=== PATIENT | male | born 1950 | race Caucasian/White ===

== ENCOUNTER → 2022-04-27 12:48 | Outpatient (CLI) | payer OTHER, SELFPAY ==
[2022-04-27 14:20] LABS: COVID19 -Nasal RAPID Negative (Negative)
== END ==
PROVIDERS: PCP Physician Assistant; Referring Provider Orthopaedic Surgery Orthopaedic Surgery of the Spine; Visit Provider Orthopaedic Surgery Orthopaedic Surgery of the Spine
DX: Z20.822 Contact with and (suspected) exposure to COVID-19 (principal)
CPT/HCPCS: 87635; C9803

== ENCOUNTER 2022-04-30 06:22 | Inpatient (IN) | payer OTHER, SELFPAY ==
[2022-04-24 12:35] VITALS: BMI 34.1
[2022-04-30] VITALS (12 sets, daily range): BP systolic 113–135; BP diastolic 63–83; PULSE 70–109; RESP 12–18; TEMP 36.6–36.9; O2SAT 92–100; BMI 34.1
[2022-04-30] MEDS: ACETAMINOPHEN 325 MG TABLET 975 MG PO (06:55)
[2022-04-30] MEDS: GABAPENTIN 300 MG CAPSULE PO ×2 (06:55→20:16)
[2022-04-30] MEDS: LACTATED RINGERS 1,000 ML 42 ML IV ×3 (06:57→11:55)
--- NOTE | 2022-04-30 07:40 | PM.PREOP ---
Pre-operative Note COVID-19 COVID-19 status: Negative Result date/Date tested (Pos, Neg/Pending): 04/29/22 Criteria for continued procedure: Expected advancement of disease process, Possibility delay results in more complex future surgery or treatment, Increased loss of function, Continuing or worsening of significant or severe pain, Deterioration of the patient's condition or overall health and Delay expected to result in less-positive ultimate med/surg outcome Interval Note History & Physical reviewed/Exam performed by Physician: Yes Changes to H&P: No
[2022-04-30] MEDS: CEFAZOLIN 2 GM/100 ML PREMIX 100 ML IV ×4 (07:56→23:38)
--- NOTE | 2022-04-30 08:29 | SUR.OPER ---
Prone on spine table, head in foam head support, padded chest and pelvic supports, gel pad at knees, lower legs supported by pillows; nipples, genitalia and toes free of pressure, arms secured on foam padded arm boards at <90 degrees abduction. Tape over blanket at thigh secured to table.
[2022-04-30] MEDS: BUPIVACAINE LIPOSOME 266 MG/20 ML VIAL INJ (08:36)
[2022-04-30] MEDS: BUPIVACAINE 0.5% W/ EPI (PF) 30 ML VIAL INJ (08:36)
--- NOTE | 2022-04-30 13:24 | DI.RAD.S_ITS ---
PROCEDURE: XR LUMBAR SPINE 2-3V INDICATIONS: L3-4, L4-5, L5-S1 TLIF ROBOT TECHNIQUE: 3 views of the lumbar spine were acquired. COMPARISON: None. FINDINGS: Intraoperative fluoroscopic images are obtained for L3-S1 posterior fusion construct with interbody spacer placement. IMPRESSION: Intraoperative fluoroscopic images were obtained for L3-S1 posterior fusion. Please see operative note for full details. Dictated by: Yao Neri M.D. on 04/30/2022 at 13:37 Approved by: Yao Neri M.D. on 04/30/2022 at 13:38
--- NOTE | 2022-04-30 13:27 | P.OP_ITS ---
Operative Date/Time/Diagnoses Date of procedure: 04/30/22 Time of procedure: 07:40 Pre-op diagnosis: 1. L3-4, L4-5, L5-S1 spinal stenosis with neurogenic claudication 2. L3-4, L4-5, L5-S1 spondylolisthesis Post-op diagnosis: same Procedure & Clinicians Procedure: 1. L3-4, L4-5, L5-S1 Postero-lateral and posterior interbody fusion 2. L3-4, L4-5, L5-S1 interbody cage placement. 3. L3-4, L4-5, L5-S1 decompressive laminectomy with bilateral facetecomies 4. L3-4, L4-5, L5-S1 Posterior segmental instrumentation 5. Butner of bone marrow from iliac crest 6. Utilization of microsurgical technique and operating microscope 7. Utilization of robotic assisted navigation Same procedure as scheduled: Yes Indications: Patient has been having chronic back pain and worsening lumbar radiculopathy. Patient failed multiple conservative management with worsening pain weakness and numbness in his lower extremity. Patient has been having difficulty performing activity of daily living. After discussing risks benefits of treatment options, patient elected proceed with surgery. Surgeon: Raciel Cronin Room Maid: Leena Mandel Click Yes if Unassisted: No Anesthesia Type: General Operative Notes Closure Type: primary Specimen(s): none sent Prosthetic devices, grafts, tissues, transplants, or devices: Globus CREO MIS screws, Rise cages Applied: catheter Estimated Blood Loss (mL): 150 Blood products transfused: none Procedure in detail: Patient was seen in the preoperative area. Risks and benefits of the surgery was discussed with the patient. Informed consent was obtained from the patient and placed in the chart. Surgical site was marked. Patient was taken to the operative room. General anesthesia was administered. Prophylactic antibiotic was given to the patient less than 30 min before the incision was made. Patient was placed into a prone position on the Manny table. Patient's back was then prepped and draped in the sterile fashion. Time-out was performed at this time. After patient was prepped and draped, patient's PSIS was palpated and marked bilaterally. Small 1 cm incision was made over the PSIS for placement of the reference probes. Two trocar was placed into the PSIS 1 on each side. The reference probe was attached to the trocar of the reference apparatus. At this time the C-arm imaging was used to confirm AP and lateral of L3-4, L4- L5, L5-S1 vertebrae and merged the C-arm imaging using the [employer] robotic navigation system with the CT of the lumbar spine. After successful merging was completed and confirmed, skin marker was used to edouard out the skin incision using the [employer] robotic arm. Bilateral incision was made at this time. Pre templated trajectory was used and guided using the [employer] robotic navigation system for bilateral L3, L4, L5, S1 pedicle screw placement. This was done by using the robotic arm to guide the high-speed bur to make a cortical entry point. Next a drill was placed also using the robotic arm and guided using the navigation system drilling partially through bilateral L3, L4, L5 and S1 pedicles. Next L3, L4, L5, S1 pedicle screws it was pre templated and measured was placed onto the power otr flatbed driver and inserted into the pedicles bilaterally. After all 8 screws were placed C-arm imaging was taken of both AP and lateral to confirm the placement. Excellent placement of the screws were confirmed and a matched precisely with the pre planned screw placement using the navigation system. MARs retractor was inserted using [employer] guidence. Globus MARS retractors was placed inside the incision and docked onto the L3, L4 and L5 lamina. Using microsurgical technique and operating microscope, a L3, L4, L5 laminectomy and L3-4, L4-5, L5-S1 facetectomy was performed using a Kerrison rongeur. Patient was found have severe lateral recess and neural foramen stenosis which was fully decompressed after the laminectomy facetectomy. More than 75% of the facets were removed during the process of decompression re ndering L3-4, L4-5, L5-S1 level grossly unstable and required a fusion procedure at the same time. The disc space at L3-4, L4-5, L5-S1 was identified, and a total diskectomy was performed at L3-4, L4-5, L5-S1 level. The endplates were decorticated using a rasp and shaver. The total diskectomy and decortication was performed at L3-4, L4-5, L5-S1 level in order to to accomplish a L3-4, L4-5, L5-S1 fusion. The local bone from the laminectomy and facetectomy was saved for local bone grafting. After the total diskectomy and decortication was completed, Trifecta bone graft material was combined with local bone that was harvested earlier. At this time, a separate skin is incision was made over the iliac crest. A Jamshidi needle was inserted into the iliac crest through a separate skin inc ision. 5 cc of bone marrow aspiration was obtained through the separate skin incision using a Jamshidi needle from the iliac crest. The bone marrow aspiration was combined with local bone and the Trifecta bone grafting material. The bone grafting material was placed into the L3-4, L4-5, L5-S1 interbody space along with a expandable cage. The cage was expanded to its maximum height using the torque limiting screwdriver. The disc preparation as well as the cage insertion were also performed under navigation guidance. After the cage was placed, AP and lateral C-arm imaging was taken to confirm placement of the cage and excellent position was confirmed. Globus MARS retractor was inserted and docked onto the L3-4, L4-5, L5-S1 posterolateral gutter on the right side. Using the power drill, posterior- lateral decortication was performed at L3-4, L4-5, L5-S1 level until bleeding cortical bone was identified. The remaining bone grafting material was placed into the L3-4, L4-5, L5-S1 posterior lateral gutter he order to accomplish posterolateral fusion at the L3-4, L4-5, L5-S1 level. At this time the tulips were attached to the L3, L4, L5, S1 pedicle screw shanks. After measuring the length of the rods, they were inserted into the tulips of the pedicle screws and locked in place using locking caps and torque limiting screwdriver bilaterally. Total 6 caps and 2 titanium rods was used in order to complete the posterior instrumentation construct. After all the hardware was placed, and confirmed with AP and lateral C-arm imaging, the wound was then irrigated with sterile normal saline and packed with Ray-Sukh gauze for 3 min to accomplish hemostasis. After the gauze was removed the deep fascia was closed with #1 Vicryl suture. The subcutaneous layer was closed with 2-0 Vicryl. The skin was closed with skin quintin. Patient tolerated the procedure well. There were no complications. Neuro monitoring system was used to monitor patient's neurologic status throughout entire procedure. There was no disturbance of the neural monitoring signals throughout the case. Complications: none Post-operative Condition: stable Disposition: PACU Plan for aftercare: Admit to inpatient hospital
[2022-04-30] MEDS: ALBUTEROL/IPRATROPIUM 3 ML AMPUL INH (14:47)
[2022-04-30] MEDS: SODIUM CHLORIDE 0.9% 1,000 ML 100 ML IV (15:21)
[2022-04-30] MEDS: OXYCODONE IR 5 MG TABLET 10 MG PO ×2 (17:18→23:38)
--- NOTE | 2022-04-30 17:37 | PC.NURSE ---
Patient given oxycodone 10mg for complaint of 6/10 pain. Repositioned to his l.side. Dressing to lower back is cdi s reynold drainage. IVF infusing and patient is comfortable. CMS wnl and ppx2. He has feeling to his lower extremities and he denies any numbness or tingling.
[2022-04-30] MEDS: ACETAMINOPHEN 325 MG TABLET 650 MG PO (20:15)
[2022-04-30] MEDS: TAMSULOSIN 0.4 MG CAPSULE PO (20:15)
[2022-04-30] MEDS: DOCUSATE 100 MG CAPSULE PO (20:16)
[2022-04-30] MEDS: SENNOSIDES 8.6 MG TABLET 17.2 MG PO (20:16)
[2022-04-30] MEDS: ATORVASTATIN 20 MG TABLET 10 MG PO (20:17)
[2022-05-01] VITALS: BP 123/85; PULSE 100; RESP 24; TEMP 36.3; O2SAT 97
[2022-05-01] MEDS: OXYCODONE IR 5 MG TABLET 10 MG PO ×2 (02:53→09:21)
[2022-05-01 04:00] VITALS: BP 117/61; PULSE 61; RESP 18; TEMP 36.1; O2SAT 93
[2022-05-01 05:08] LABS: Hematocrit 35.9 % (41-53); Hemoglobin 12.4 g/dL (13.5-17.5)
[2022-05-01] MEDS: ACETAMINOPHEN 325 MG TABLET 650 MG PO (05:44)
--- NOTE | 2022-05-01 07:52 | PM.PNPO.1 ---
Subjective Subjective Date Patient Seen: 05/01/22 Time Patient Seen: 07:52 Interval history: Patient is complaining of moderate to severe low back pain and notes bed is very uncomfortable. He has not worked with physical therapy or occupational therapy yet. He still has his urinary catheter in place, he takes baseline tamsulosin. Exam Vital Signs (past 8 hours): - 05/01/22 00:00 05/01/22 04:00 Temperature 97.4 F L 97.0 F L Pulse Rate 100 H 61 Respiratory Rate 24 18 Blood Pressure 123/85 117/61 Pulse Oximetry 97 93 Oxygen Flow Rate 1.5 Fraction of Inspired Oxygen 28 Oxygen Delivery Method Nasal Cannula Oxygen Flow Rate 1.5 Narrative Exam Narrative: Pleasant 71-year-old male, resting comfortably in bed, no acute distress. Lumbar dressings: Left lateral incision demonstrates some bloody discharge, no surrounding erythema, induration, ecchymosis. Bilateral lower extremity: Motor functions are grossly intact, sensation is grossly intact to light touch, calves are soft and nontender to palpation. Objective Labs Result Diagrams: 05/01/22 04:28 Labs: Laboratory Results - last 24 hr 05/01/22 04:28 Hgb 12.4 L Hct 35.9 L PFSH Medical History CVA (cerebral vascular accident) (2017) Enlarged prostate HLD (hyperlipidemia) HTN (hypertension) Psoriasis Spinal stenosis Surgical History H/O vasectomy (~1979) History of carpal tunnel surgery of left wrist (2011) History of carpal tunnel surgery of right wrist (2009) History of left knee surgery History of nasal surgery Hx of colonoscopy with polypectomy (07/15/17) Hx of foot surgery Social History household members: spouse and children Smoking Status: Former smoker alcohol intake: current Assessment & Plan Post-op Postoperative Procedures: Procedures Operation Date: 04/30/22 07:45 Actual Procedure Side Surgeon p L3-4, L4-5, L5-S1 TLIF w. posterior instrumentation -Robot Not Applicable Raciel Cronin MD Postoperative day: 1 Postoperative status narrative: -stable status post L3-4, L4-5, L5-S1 TLIF with posterior instrumentation Postoperative plan: routine post-op care Postoperative plan narrative: -mobilize with PT/OT. Weightbearing as tolerated with front wheel walker. Limit bending, lifting, twisting x6 weeks -DC urinary catheter today, as long as he is mobilizing well -continue with multimodal pain management -DC home, likely tomorrow, under care of his family. Quality VTE Deep Vein Thrombosis/Pulmonary Embolism Present on Admission: No
[2022-05-01] MEDS: hydrOXYzine pamoate 25 MG CAPSULE PO (09:21)
[2022-05-01] MEDS: GABAPENTIN 300 MG CAPSULE PO (09:22)
[2022-05-01] MEDS: TAMSULOSIN 0.4 MG CAPSULE PO (09:22)
[2022-05-01] MEDS: DOCUSATE 100 MG CAPSULE PO (09:22)
[2022-05-01] MEDS: lisinopriL 10 MG TABLET PO (09:22)
--- NOTE | 2022-05-01 09:25 | PT.IIE ---
Current Diagnoses Spondylolisthesis, lumbar region (04/30/22) Spinal stenosis, lumbar region with neurogenic claudication (04/30/22) Surgery Performed Operation Date: 04/30/22 07:45 Actual Procedures p L3-4, L4-5, L5-S1 TLIF w. posterior instrumentation -Robot(Not Applicable) - Raciel Cronin MD Surgical History (Last Reviewed 05/01/22 @ 07:53 by Denae Gaspar PA-C) H/O vasectomy (~1979) History of carpal tunnel surgery of left wrist (2011) History of carpal tunnel surgery of right wrist (2009) History of left knee surgery History of nasal surgery Hx of colonoscopy with polypectomy (07/15/17) Hx of foot surgery Medical History (Last Reviewed 05/01/22 @ 07:53 by Denae Gaspar PA-C) CVA (cerebral vascular accident) (2017) Enlarged prostate HLD (hyperlipidemia) HTN (hypertension) Psoriasis Spinal stenosis Physical Therapy Inpatient Evaluation/Re-Eval M1 PT/OT-IP Prior Functional Status Start: 05/01/22 12:27 Freq: NEEDED Status: Active Protocol: Document 05/01/22 09:25 AB (Rec: 05/01/22 12:37 AB [email or web address]) Medical Review Prior Functional Status Medical History Reviewed Yes Communication able to make needs known Mobility and Gait pt stated that he is independent with all mobilities and ambulation without AD Social History Household Members spouse,children Living Arrangements Mobile home Number of Floors (Floors) One Floor Number of Stairs To Enter/Railing? ramp to enter Home Environment High Toilet,Walk in Shower, Ramp Home Equipment Four Wheel Walker,Quad Cane, Straight Cane,Lift Recliner, Grab Bars In Shower Additional Social History Comment pt has an adjustable bed pt has a lift chair and plans to sleep on lift chair pt stated that his spouse had a fall and has an ankle and wrist fx and will not be able to assist him. staetd that his [id number] will assist him at home and his son when not at work will also assist him M2 PT-IP Current Condition Start: 05/01/22 12:27 Freq: NEEDED Status: Active Protocol: Document 05/01/22 09:25 AB (Rec: 05/01/22 12:37 AB [email or web address]) Physical Therapy Current Condition Current Condition Evaluation Date 05/01/22 Treatment Diagnosis s/p L3-4, L4-5, L5S1 TLIF; difficulty in walking Onset Date 04/30/22 M3 PT-IP Subjective Start: 05/01/22 12:27 Freq: NEEDED Status: Active Protocol: Document 05/01/22 09:25 AB (Rec: 05/01/22 12:37 AB [id number]) Subjective Physical Therapy Visit Type Type Initial Evaluation Visit Start Time 09:25 Visit Stop Time 10:01 Total Visit Minutes 36 Number of CONTRACT FORESTER Visits 0 Physical Therapy Visit Comments Patient Comments agreeable to do PT Therapy Pain Assessment Pain When Pain Assessed At Rest Location Posterior Back Intensity 4 Scale Used Numeric (0 - 10) Pain Management Techniques Apply Cold,Distraction, Modification of Treatment,Re- positioning,Timing of Activity with Medications M4 PT-IP Mobility and Gait Start: 05/01/22 12:27 Freq: NEEDED Status: Active Protocol: Document 05/01/22 09:25 AB (Rec: 05/01/22 12:37 [email or web address]) PT-Bed Mobility Assessment Rolling Type of Rolling Log Rolling Level of Assist Minimal Assistance Supine to Sit Supine to Sit Minimal Assistance PT-Transfer Assessment Sit to and From Stand Sit to and from Stand Minimal Assistance,Moderate Assistance,1 Person Assistance ,Use of Upper Extremities Equipment Transfer Assistive Device Gait Belt,Front Wheeled Walker Orthotic/Prosthetic Devices or Brace: No Transfers Transfer Destination Chair Transfer Technique ambulated Transfer Ability Level of Assist Minimal Assistance,Moderate Assistance,1 Person Assistance ,Use of Upper Extremities Comments Mobility Comments educated pt on back precautions and log roll bed mobility. pt completed supine to sit log roll min A and max cues. able to sit on EOB SBA. completed sit to stand min to mod A and max cues. ambulated towards the chair using FWW min to mod A and max cues. pt can be impulsive. refused further ambulation but agreed to sit up on the chair . positioned on the chair. call light and table placed within reach. Gait Assessment Gait Gait Assistance Required: Minimum Assistance,Moderate Assistance Distance (Feet) 15 Able to Maintain Weight Bearing Status Yes During Gait Assistive Devices Assistive Device Gait Belt,Front Wheeled Walker Orthotic/Prosthetic Devices or Brace: No Gait Deviations General Gait Pattern Decreased Stride Length, Decreased Feet Clearance,Step- to Gait Factors Limiting Gait Function Factors Limiting Gait Function Decreased Activity Tolerance, Decreased Sensation,Decreased Strength,Limited Range of Motion,Pain,Poor Balance,Poor Safety Awareness PT-Balance Assessment Sitting Balance and Reactions Static Sitting Balance Ability Normal Dynamic Sitting Balance Ability Good Standing Balance and Reactions Static Standing Balance Ability Fair Dynamic Standing Balance Ability Fair Device Used FWW M5 PT-IP Objective Assessments Start: 05/01/22 12:27 Freq: NEEDED Status: Active Protocol: Document 05/01/22 09:25 AB (Rec: 05/01/22 12:37 AB [email or web address]) Orientation Orientation/Cognition Level of Alertness Alert Orientation Name,Age,Place,Situation Language Function Ability Hard of Hearing Safety Awareness Decreased Safety Awareness Memory Description Short Term Impaired Gross Range of Motion Lower Extremity ROM Assessment Within Functional Limits Strength Lower Extremity Strength Assessment Right Impaired Hip 4-/5 Knee 3+/5 Sensation Assessment Sensation Gross Sensation Right LE Impaired,Left LE Impaired Light Touch Impaired Proprioception (Position) Impaired Sensation Description Numbness Comments Sensation Comments c/o numbness on B feet since CVA Muscle Tone Muscle Tone WNL Yes M6 PT-IP Treatment Start: 05/01/22 12:27 Freq: NEEDED Status: Active Protocol: Document 05/01/22 09:25 AB (Rec: 05/01/22 12:37 AB [email or web address]) Physical Therapy Treatment Education Education Provided Precautions,Weight Bearing Status,Post-Op Packet,Safety M7 PT-IP Assessment and Plan Start: 05/01/22 12:27 Freq: NEEDED Status: Active Protocol: Document 05/01/22 09:25 AB (Rec: 05/01/22 12:37 AB [email or web address]) PT Summary Assessment and Plan Potential Rehabilitation Potential Fair Status of Condition at Evaluation Evolving Summary Impairments Pain,ROM,Strength,Balance, Coordination,Sensation,Tone, Cognition,Bed Mobility, Transfers,Gait,Activity Tolerance Assessment Summary pt requiring min to mod A with mobility using FWW but unable to tolerate much activity. pt plans to go home and has his family to assist him. will continue to assess progress and when appropriate, conduct caregiver training. Goals Bed Mobility Goal Standby Assistance Transfer Goal Standby Assistance,Front Wheeled Walker,Four Wheeled Walker Gait Goal Standby Assistance,Front Wheel Walker,Four Wheel Walker Gait Distance 200 Days to Meet Goals 5 Frequency of Treatment Frequency Of Treatment Twice a Day Treatment Plan Physical Therapy Treatment Plan Bed Mobility Training,Transfer Training,Gait Training, Therapeutic Exercise,Balance Retraining,Post Op Education, Discharge Planning,Hot or Cold Pack,Neuromuscular Re-ed, Coordination Retraining,Manual Therapy Precautions Lumbar Precautions Log Roll,No Twisting,Limit Bending,Lifting Restriction of 10 lbs,Gait Belt above Incisional Area Recommendations To Nursing Amount of Assist Needed 1 Person Assist Discharge Recommendations PT Discharge Recommendations Home with 05/11 Assist Available,Home Health Transportation Needs at Discharge Private Vehicle
--- NOTE | 2022-05-01 11:20 | OT.IP.EVAL ---
Current Diagnoses Spondylolisthesis, lumbar region (04/30/22) Spinal stenosis, lumbar region with neurogenic claudication (04/30/22) Surgery Performed Operation Date: 04/30/22 07:45 Actual Procedures p L3-4, L4-5, L5-S1 TLIF w. posterior instrumentation -Robot(Not Applicable) - Raciel Cronin MD Past Medical History (Last Reviewed 05/01/22 @ 07:53 by Denae Gaspar PA-C) CVA (cerebral vascular accident) (2017) Enlarged prostate HLD (hyperlipidemia) HTN (hypertension) Psoriasis Spinal stenosis Surgical History (Last Reviewed 05/01/22 @ 07:53 by Denae Gaspar PA-C) H/O vasectomy (~1979) History of carpal tunnel surgery of left wrist (2011) History of carpal tunnel surgery of right wrist (2009) History of left knee surgery History of nasal surgery Hx of colonoscopy with polypectomy (07/15/17) Hx of foot surgery Occupational Therapy Inpatient Evaluation/Re-Eval M2 OT-IP Current Condition Start: 05/01/22 12:03 Freq: Status: Active Protocol: Document 05/01/22 12:08 [facility] (Rec: 05/01/22 12:30 [facility] [id number]) Occupational Therapy Current Condition Current Condition Evaluation Date 05/01/22 Treatment Diagnosis s/pL3-4, L4-5, L5-S1 TLIF Diagnosis Onset Date 04/30/22 Post Operative Precautions Lumbar Precautions Log Roll,No Twisting,Limit Bending,Lifting Restriction of 10 lbs,Gait Belt above Incisional Area M3 OT- IP Subjective and Pain Start: 05/01/22 12:03 Freq: Status: Active Protocol: Document 05/01/22 12:08 [facility] (Rec: 05/01/22 12:30 [facility] [id number]) OT- Subjective Occupational Therapy Visit Type Type Initial Evaluation Visit Start Time 10:52 Visit Stop Time 11:20 Total Visit Minutes 28 Occupational Therapy Visit Comments Patient Comments Pt agreed to get up for OT eval. Patient/Caregiver Goals To go home. OT Pain Assessment Pain When Pain Assessed At Rest Pain Present Pain Present Pain Reported M4 OT- IP ADL's Start: 05/01/22 12:03 Freq: Status: Active Protocol: Document 05/01/22 12:08 [facility] (Rec: 05/01/22 12:30 [facility] [id number]) OT [id number] Comments OT Self-Feeding Comments Not at meal time, no issued anticipated. OT ADL-Grooming General Evaluation Grooming Ability Independent Areas Needing Assistance Retrieving/Set-up of Grooming Items Comments OT Grooming Comments Pt able to stand with FWW for grooming needs. OT ADL-Oral Care General Eval Oral Care Ability Independent Comments Oral Care Comments VC to hinge at his hips or spit into a cup to best follow his back precautions. OT ADL-Dressing General Eval Lower Body Dressing Ability Maximum Assistance Comments OT Dressing Comments Able to practice use of LB dressing equipment for socks. OT ADL-Toileting Comments OT Toileting Comments Pt not having to go at this time. Pt having difficulty to reach to wipe when practiced and may benefit from a toilet paper aid or bidet. OT ADL-Bathing Comments OT Bathing Comments Not performed. Pt will benefit from a shower chair and HHSP. Educated a long handled brush or long thin towel to help wash between his legs would be helpful in addition to someone there to assist as needed. M5 OT- IP IADL's Start: 05/01/22 12:03 Freq: Status: Active Protocol: Document 05/01/22 12:08 [facility] (Rec: 05/01/22 12:30 [facility] [id number]) OT-Instrumental Activities of Daily Living Deficits IADL Deficits Identified Deficits Home Safety Awareness Awareness of Need for Assistance at Home Good Awareness Home Safety Comments Pt has decreased STM and due to history of old CVA and needing reminders to help incorporate his back precautions. Medication Management Medication Management Caregiver Administers Money Management Money Management Caregiver Provides Assistance Meal Preparation Meal Preparation Caregiver Provides Assist Internet Marketing Director Internet Marketing Director Caregiver Provides Assist M6 OT- IP Functional Cognition Start: 05/01/22 12:03 Freq: Status: Active Protocol: Document 05/01/22 12:08 [facility] (Rec: 05/01/22 12:30 [facility] [id number]) Cognitive Factors Limiting Selfcare Function Cognitive Ability Level of Alertness Alert Patient Orientation Name,Place,Situation Attention Span Ability Capable of Focused Attention, Capable of Sustained Attention Ability to Follow Commands Able to Follow One Step Commands Memory Description Short Term Impaired Safety Awareness Decreased Recall of Precautions,Decreased Ability to Apply Precautions, Underestimates Need for Assistance Cognitive Comments Cognitive Assessment Comments Pt has decreased short term memory and easily distracted however per pt due to old CVA. Pt needing reminders for back precautions and how to incorporate them for ADl and mobility needs. Pt also needing vc for FWW safety and cues to scoot forwards before trying to stand up. OT- Vision and Hearing OT- Hearing Assessment OT- Hearing Assessment WFL OT- Vision Assessment Visual Acuity Glasses All The Time M7 OT- IP Mobility and Balance Start: 05/01/22 12:03 Freq: Status: Active Protocol: Document 05/01/22 12:08 [facility] (Rec: 05/01/22 12:30 [facility] [id number]) OT-Transfer Assessment Sit to and From Stand Sit to and from Stand Minimal Assistance Transfers Transfer Ability Minimal Assistance Technique Transfer Destination Chair Transfer Technique Stand Step Pivot Devices Transfer Assistive Devices Gait Belt,Front Wheeled Walker Comments Mobility Comments YIFAN to stand from the recliner to FWW. CGA-YIFAN to walk to the sink and back for grooming/oral care needs. OT- Balance Assessment Sitting Balance and Reactions Static Sitting Balance Ability Normal Dynamic Sitting Balance Ability Good Standing Balance and Reactions Static Standing Balance Ability Fair Dynamic Standing Balance Ability Fair M8 OT- IP Objective Assessments Start: 05/01/22 12:03 Freq: Status: Active Protocol: Document 05/01/22 12:08 [facility] (Rec: 05/01/22 12:30 [facility] [id number]) OT Sensation Assessment Comments Summary Comments Pt complaining of numbness in his left 4th and 5th digit. Per pt told the PA this morning. M9 OT- IP Assessment and Plan Start: 05/01/22 12:03 Freq: Status: Active Protocol: Document 05/01/22 12:08 [facility] (Rec: 05/01/22 12:30 [facility] [id number]) OT Summary Assessment and Plan Potential Rehabilitation Potential Good Analytic Complexity at Evaluation Low Summary OT Impairments Pain,Strength,Balance, Functional Cognition, Functional Mobility,Dressing, Toileting,Bathing,Toilet Transfers,Shower Transfers Progress Towards Goals Progressing Toward Goals Assessment Summary Pt low complexity and main barriers are pain and decreased short term memory - per pt due to old CVA and therefore needing reminders for his back precautions and how to incorporate them for ADl and mobility needs. Pt to go home when medically stable with 24/7 available assist but not 1:1 assist. Pt will benefit from getting a FWW and shower chair. Goals Dressing Goal Minimal Assistance Toileting Goal Independent Bathing Goal Minimal Assistance Toilet Transfer Goal Independent Shower Transfer Goal Independent Patient/Caregiver Education Goal Demonstrate Post-Op Precautions Days to Meet Goals 5 Frequency of Treatment Frequency Of Treatment Once a Day Treatment Plan OT Treatment Plan ADL Training,Functional Cognition Training,Functional Mobility,Patient/Family Education,Discharge Planning Other Treatment Recommendations and Next shower Treatment Focus Discharge Recommendations OT Discharge Recommendations Home with 24/ Assist Available Other Discharge Recommendations Pt does not need 1:1 but someone there at all times. Home Equipment Needs FWW, shower chair Transportation Needs at Discharge Private Vehicle
[2022-05-01 13:17] VITALS: BP 118/66; PULSE 66; RESP 17; TEMP 36.6; O2SAT 95
--- NOTE | 2022-05-01 14:00 | PT.IPTN ---
Current Diagnoses Spondylolisthesis, lumbar region (04/30/22) Spinal stenosis, lumbar region with neurogenic claudication (04/30/22) Surgery Performed Operation Date: 04/30/22 07:45 Actual Procedures p L3-4, L4-5, L5-S1 TLIF w. posterior instrumentation -Robot(Not Applicable) - Raciel Cronin MD Physical Therapy Treatment Note M2 PT-IP Current Condition Start: 05/01/22 12:27 Freq: NEEDED Status: Active Protocol: Document 05/01/22 09:25 [facility] (Rec: 05/01/22 12:37 AB [id number]) Physical Therapy Current Condition Current Condition Evaluation Date 05/01/22 Treatment Diagnosis s/p L3-4, L4-5, L5S1 TLIF; difficulty in walking Onset Date 04/30/22 M3 PT-IP Subjective Start: 05/01/22 12:27 Freq: NEEDED Status: Active Protocol: Document 05/01/22 14:00 [facility] (Rec: 05/01/22 15:53 AB [id number]) Subjective Physical Therapy Visit Type Type Treatment Note Visit Start Time 14:00 Visit Stop Time 14:15 Total Visit Minutes 15 Number of MANAGER PHARMACY Visits 0 Physical Therapy Visit Comments Patient Comments agreeable to do PT M4 PT-IP Mobility and Gait Start: 05/01/22 12:27 Freq: NEEDED Status: Active Protocol: Document 05/01/22 14:00 AB (Rec: 05/01/22 15:53 AB [id number]) PT-Transfer Assessment Sit to and From Stand Sit to and from Stand Contact Guard Assistance,1 Person Assistance,Use of Upper Extremities Equipment Transfer Assistive Device Gait Belt,Front Wheeled Walker Orthotic/Prosthetic Devices or Brace: No Comments Mobility Comments pt sitting on chair and agreeable to do PT. completed sit to stand CGA and ambulated in room using FWW CGA ~ 40 ft . cued for posture and steadiness. pt wants to stay up on the chair. positioned on the chair. call light and table placed within reach. Gait Assessment Gait Gait Assistance Required: Contact Guard Assist Distance (Feet) 40 Able to Maintain Weight Bearing Status Yes During Gait Assistive Devices Assistive Device Gait Belt,Front Wheeled Walker Orthotic/Prosthetic Devices or Brace: No Gait Deviations General Gait Pattern Antalgic,Decreased Feet Clearance Factors Limiting Gait Function Factors Limiting Gait Function Decreased Activity Tolerance, Decreased Sensation,Decreased Strength,Limited Range of Motion,Pain,Poor Balance,Poor Safety Awareness M5 PT-IP Objective Assessments Start: 05/01/22 12:27 Freq: NEEDED Status: Active Protocol: Document 05/01/22 09:25 AB (Rec: 05/01/22 12:37 AB [id number]) Orientation Orientation/Cognition Level of Alertness Alert Orientation Name,Age,Place,Situation Language Function Ability Hard of Hearing Safety Awareness Decreased Safety Awareness Memory Description Short Term Impaired Gross Range of Motion Lower Extremity ROM Assessment Within Functional Limits Strength Lower Extremity Strength Assessment Right Impaired Hip 4-/5 Knee 3+/5 Sensation Assessment Sensation Gross Sensation Right LE Impaired,Left LE Impaired Light Touch Impaired Proprioception (Position) Impaired Sensation Description Numbness Comments Sensation Comments c/o numbness on B feet since CVA Muscle Tone Muscle Tone WNL Yes M6 PT-IP Treatment Start: 05/01/22 12:27 Freq: NEEDED Status: Active Protocol: Document 05/01/22 14:00 AB (Rec: 05/01/22 15:53 AB [id number]) Physical Therapy Treatment Education Education Provided Safety M7 PT-IP Assessment and Plan Start: 05/01/22 12:27 Freq: NEEDED Status: Active Protocol: Document 05/01/22 14:00 AB (Rec: 05/01/22 15:53 AB [id number]) PT Summary Assessment and Plan Potential Rehabilitation Potential Good Summary Impairments Pain,ROM,Strength,Balance, Coordination,Sensation,Tone, Cognition,Bed Mobility, Transfers,Gait,Activity Tolerance Progress Towards Goals Progressing Toward Goals Assessment Summary pt improving with mobility and able to ambulate using FWW CGA ~ 40 ft. pt plans to go home and family will be available to assist him. will continue to assess progress. Goals Bed Mobility Goal Standby Assistance Transfer Goal Standby Assistance,Front Wheeled Walker,Four Wheeled Walker Gait Goal Standby Assistance,Front Wheel Walker,Four Wheel Walker Gait Distance 200 Days to Meet Goals 5 Frequency of Treatment Frequency Of Treatment Twice a Day Treatment Plan Physical Therapy Treatment Plan Bed Mobility Training,Transfer Training,Gait Training, Therapeutic Exercise,Balance Retraining,Post Op Education, Discharge Planning,Hot or Cold Pack,Neuromuscular Re-ed, Coordination Retraining,Manual Therapy Precautions Lumbar Precautions Log Roll,No Twisting,Limit Bending,Lifting Restriction of 10 lbs,Gait Belt above Incisional Area Recommendations To Nursing Amount of Assist Needed 1 Person Assist Discharge Recommendations PT Discharge Recommendations Home with 05/11 Assist Available Transportation Needs at Discharge Private Vehicle
[2022-05-01 15:53] VITALS: BP 120/61; PULSE 70; RESP 16; TEMP 36.6; O2SAT 96
--- NOTE | 2022-05-01 15:55 | CM.DANOTE ---
Patient is a 71 yo male who was admitted on 04/30/22 for TLIF. Pt has [facility] ADV for insurance and his PCP is Stephanie Jeffries. EMR was reviewed. Per Ortho PA, pt had some pain management issues and to work with PT/OT towards possible d/c home tomorrow. Per PT, recommending home with assist and outpt PT. SW met bedside with pt and explained role and pt confirms that he lives in [facility] in a mobile home with his spouse and his adult son. Pt is independent with ADLs at baseline and drives and has some DME at home. Pt states his adult son works internal combustion engine inspector but available for assist on weekends and evenings. Pt's spouse currently has limited ability to assist as she recently had a hand fx and twisted ankle but pt's sister inlaw plans to assist during the day when son is at work. Pt denies any hx of HH or SNF and does not anticipate any needs at d/c and preference is home with family assist and sister in law plans to provide transport at d/c. Plan: SW to follow for plan of home via POV tomorrow if medically stable and any further identified needs. GABRIELLA Zepeda Discharge Planning/Care Management Advanced directive, confirm from FAMILY Start: 04/30/22 15:12 Freq: Q24H Status: Active Protocol: Document 04/30/22 17:31 CLL (Rec: 04/30/22 17:36 CLL [id number]) Advance Directive, confirm on record Time 17:36 Person contacted [email or web address] Copy received No CM Discharge Assessment Start: 05/01/22 15:43 Freq: Status: Active Protocol: Document 05/01/22 15:43 BF (Rec: 05/01/22 15:55 BF [id number]) Discharge Planning Assessment Assigned Lunchroom Mother GABRIELLA Polk DPOA/Assigned Designee Name spouse Aubree Suly Advance Directives? Yes Advance Directives on File No History Provided By Patient,Medical Record Has Patient been admitted in last 30 No days? Prior Living Arrangements Mobile home Household Members spouse,children Type of transporation used prior to Drives own vehicle admit Independent with ADL's Yes Is patient alert and oriented? Yes Caregiver for Another No DME Already Rented / Owned FWW / Walker Patient/Family Preference OP PT Therapy Barriers to Discharge No Discharge Plan Home Transportation Arrangement Sister inlaw plans to transport Referrals Initiated None needed Whiteboard Updated in Patient Room with Yes name and ext. # of Lunchroom Mother Review Status In Process Please Provide Date Initial DC 05/01/22 Assessment Was Performed Next Review Type Continued Stay Review Pre-Anesthesia Assessment Start: 04/24/22 12:35 Freq: Status: Active Protocol: Document 04/24/22 12:35 CAB (Rec: 04/24/22 13:36 CAB [id number]) Pre-Anesthesia Assessment Patient Information Reviewed Via Phone Assessment Assessment Completed With Patient Diagnostic Results BMP/CMP,CBC,EKG,Urinalysis Comment Outside labs/ECG scanned, COVID screen @ 04/27/22 Primary Care Provider Viola Jeffries Seen Specialist in Last 12 Months Yes Specialist Seen Soubrette,Orthopedist,Other Primary Language Faroese Store Manager Required No Height 177.8 cm Weight 107.955 kg Body Mass Index (BMI) 34.1 Hearing Ability Normal Visual Assist Glasses Dentition Type Teeth, Natural Present Barriers to Learning Memory Hx Anesthesia Reactions No: Dilaudid causes combativeness Hx Family Anesthesia Reaction No Hx Malignant Hyperthermia No Hx Blood Transfusions No Anesthesia Review Requested No alcohol intake current alcohol intake frequency a few times a week Smoking Status Former smoker how long ago did patient quit smoking Quit in his early 20's Substance Use Type marijuana Comment Pt advised not to smoke marijuana 24 hours prior Pain Present Pain Reported Musculoskeletal Symptoms Abnormal Gait,Back Pain, Difficulty Walking,Radiating Pain into Limb History of Falling (Recent or History of No ) Patient is completely paralyzed or No completely immobile Mental Status Oriented to own ability Comment Balance issues Is patient on oxygen? No Does patient have [place]/SOB No Hx Sleep Apnea No Currently Taking a Beta Mariela No Hx Chest Pain No Hx SOB No Hx Syncope or Dizziness No Anti-Coagulant Therapy Yes: 81mg ASA for CVA-pt will check w/PCP if to stop or continue Has a Soubrette Yes: Pre-op visit 01/16/[address] Richards @ [facility] Cardiac Testing Yes: Echo @ [facility] 11/04/21 Hx Pacemaker/ICD No Pacemaker Rep Required? No Cardiac Clearance Received Yes Comment Cardiac records scanned Diet Type At Home Regular Dysphagia No Gastrointestinal Symptoms Excessive Flatus Chronic UTI No Bladder Pattern Nocturia Urinary Catheter Present No Hx Urinary Self Catheterization No Diabetes No Hx Drug Resistant Organism No Presence of External or Internal Medical No Devices Have you had any close contact with No someone diagnosed with COVID-19? Received a COVID vaccine? Yes Received all doses? Yes Marital Status Lives With spouse,children Current Living Arrangements Mobile home Support System Child/Children,Spouse Does the Patient Have Assistance After Yes Surgery Patient Discharge Plan Description Return Home Comment Pt advised overnight length of stay per surgeon Feels Safe in Current Environment Yes Been Physically Hurt or Threatened By a No Person in Current Environment Do you have thoughts of harming yourself None or others? Are you currently considering suicide? No Do you have a plan to hurt yourself or No Plan others? Do You Have Any Spiritual Beliefs That No May Affect Your HC Choices? Do You Have Any Cultural Practices That No May Affect Your HC Choices? Comment Confucianist Who Can We Speak to About Patient's Care Family, friends Identifying Code for Release of Patient Declines to issue Information Health Care Proxy/Next of Kin Aubree () Health Care Proxy Emergency Contact Name Aubree () Emergency Contact Advance Directives? Yes Advance Directives on File No Requested Patient Bring Advanced Yes Directives DOS Power of Golf Course Superintendent No PAC Instructions Durable medical equipment, Medications to take/avoid, Nasal antibiotic,No ETOH/ petroleum product on skin DOS, NPO,Post-op transportation,Pre -surgical wash,Sensory aids, Sturdy shoes/comfortable clothes,Do not bring valuables and remove jewelry
--- NOTE | 2022-05-01 16:42 | P.DS_ITS ---
History of Present Illness History of Present Illness Date Patient Seen: 05/01/22 Time Patient Seen: 16:42 Chief complaint: Low back pain s/p TLIF Narrative: Please see prior HPI from today. The patient is feeling well would like to be discharged home. He has urinated and worked with physical therapy and occupational therapy. His pain is currently well managed. Discharge Providers Provider Date of admission: 04/30/22 06:22 Discharge Date: 05/01/22 Primary care physician: Viola Jeffries PA-C Consults: 04/30/22 14:49 Consult to Occupational Therapy Evaluate & Treat Comment: Physician Instructions: Evaluate and treat Consult to Physical Therapy Evaluate & Treat Comment: Physician Instructions: Evaluate and Treat Discharge provider: Denae Gaspar PA-C Summary Hospital Course Discharge Diagnosis: 1. L3-4, L4-5, L5-S1 spinal stenosis with neurogenic claudication 2. L3-4, L4-5, L5-S1 spondylolisthesis Hospital Course: Operative Date/Time/Diagnoses Date of procedure: 04/30/22 Time of procedure: 07:40 Procedure & Clinicians Procedure: 1. L3-4, L4-5, L5-S1 Postero-lateral and posterior interbody fusion 2. L3-4, L4-5, L5-S1 interbody cage placement. 3. L3-4, L4-5, L5-S1 decompressive laminectomy with bilateral facetecomies 4. L3-4, L4-5, L5-S1 Posterior segmental instrumentation 5. [place] of bone marrow from iliac crest 6. Utilization of microsurgical technique and operating microscope 7. Utilization of robotic assisted navigation Same procedure as scheduled: Yes Indications: Patient has been having chronic back pain and worsening lumbar radiculopathy. Patient failed multiple conservative management with worsening pain weakness and numbness in his lower extremity.? Patient has been having difficulty performing activity of daily living.? After discussing risks benefits of treatment options, patient elected proceed with surgery. Surgeon: Raciel Cronin [employer] Worker: Leena Mandel Click Yes if Unassisted: No Anesthesia Type: General Operative Notes Closure Type: primary Specimen(s): none sent Prosthetic devices, grafts, tissues, transplants, or devices: Globus CREO MIS screws, Rise cages Applied: catheter Estimated Blood Loss (mL): 150 Blood products transfused: none Status at Discharge Cognitive/behavioral status at discharge: at baseline, oriented Functional status at discharge: uses cane/walker Overall status at discharge: patient is progressing back to baseline Exam Vital Signs (past 8 hours): - 05/01/22 13:17 05/01/22 15:53 Temperature 98 F 97.8 F Pulse Rate 66 70 Respiratory Rate 17 16 Blood Pressure 118/66 120/61 Pulse Oximetry 95 96 Oxygen Flow Rate 0 0 Fraction of Inspired Oxygen 28 Oxygen Delivery Method Room Air Oxygen Flow Rate 0 Narrative Exam Narrative: Please see prior exam from today. Objective Labs Result Diagrams: 05/01/22 04:28 Labs: Laboratory Results - last 24 hr 05/01/22 04:28 Hgb 12.4 L Hct 35.9 L PFSH Medical History CVA (cerebral vascular accident) (2018) Enlarged prostate HLD (hyperlipidemia) HTN (hypertension) Psoriasis Spinal stenosis Surgical History H/O vasectomy (~1979) History of carpal tunnel surgery of left wrist (2011) History of carpal tunnel surgery of right wrist (2009) History of left knee surgery History of nasal surgery Hx of colonoscopy with polypectomy (07/15/17) Hx of foot surgery Social History household members: spouse and children Smoking Status: Former smoker alcohol intake: current Discharge Assessment & Plan Assessment and Plan Assessment: -stable status post L3-4, L4-5, L5-S1 TLIF Plan of Treatment: -continue with multimodal pain management -DC home today as he is cleared by PT Discharge Plan Discharge Plan Patient Disposition: Home Discharge orders & Medications Prescriptions: New acetaminophen 500 mg capsule 500 mg PO Q4H MDD Max 3000 mg per day PRN (Reason: Pain, Mild (1-3)) Qty: 90 0RF docusate sodium 100 mg Capsule 100 mg PO BID PRN (Reason: Constipation from narcotic pain meds) Qty: 20 0RF hydroxyzine pamoate 25 mg Capsule 25 mg PO Q4HR PRN (Reason: Muscle spasm/pain/nausea) Qty: 40 0RF oxycodone 5 mg Tablet See Rx Instructions .ROUTE .COMPLEX PRN (Reason: Pain, Severe (7-10)) Qty: 42 0RF Rx Instructions: Take 1-2 tablets by mouth every 4 hours as needed for moderate to severe postoperative pain Continued atorvastatin 10 mg Tablet 10 mg PO BEDTIME aspirin 81 mg Tablet,Delayed Release (Dr/Ec) 81 mg PO DAILY tamsulosin 0.4 mg Capsule 0.4 mg PO BID lisinopril 10 mg Tablet 10 mg PO DAILY gabapentin 300 mg Capsule 300 mg PO BID Follow up/Referrals: Viola Jeffries PA-C [Primary Care Provider] - Raciel Cronin MD [Physician] - As previously scheduled (10-14 days for postoperative visit) Diet/Activity/Treatments Diet: Diet as Tolerated Other treatments: Medications: -OTC Tylenol 500 mg 1 tablet every 4 hours as needed for pain/fever. Max 6 tablets per day. -Oxycodone 5 mg take 1-2 tablets every 4 hours as needed for moderate-severe pain (narcotic pain medication). -As needed medications: -Ducolax and /or MiraLax as needed for constipation from narcotic pain medications. -Pepcid AC as needed for stomach upset. -Vistaril (hydroxyine) 25mg 1 tab every 4 hours as needed for spasms/pain/na usea. Dressing/Wound care: -Keep dressing in place until postoperative follow-up office visit. -Okay to shower. Keep wound out of direct water stream. Can use PressNSeal plastic wrap to protect from shower stream. No soaking or submerging until all the scabs fall off (approximately 6 weeks). -Please call the office if dressing becomes wet, soiled, or saturated. Activities: -Limit bending, lifting, twisting x6 weeks. No deep bending (more than 90 degrees) or twisting at the waist. No lifting > 20 pounds. -Walk frequently. -Weight-bearing as tolerated. Use front wheeled walker, and progress to cane when safe. -Continue with home exercises as directed by your physical therapist. -Ice your incision as needed for pain/inflammation/swelling. Protect your skin with a folded pillowcase. -Incentive Spirometer (breathing device from hospital): 5-10xs every hour while awake for the first 1-2 weeks. Follow-up: -Follow-up with your surgeon or PA in the office in 10-14 days after surgery. -Follow-up with your surgeon 6 weeks postoperatively. Call the office if you have chest pain, shortness of breath, significant swelling that will not resolve with elevating, fever over 101?, significantly worsening pain, or are concerned you might need to go to the Emergency Room. [facility]: [phone] Skin/Wound/Dressing Care Report to your healthcare provider any signs of infection, such as:: chills, fever, night sweats, unusual drainage and unusual redness Visit Report/Discharge Packet Instructions: DI for Transforaminal Lumbar Interbody Fusion Stand Alone Forms: Patient Portal/API, Stroke Signs & Symptoms, Surgery Discharge Discharge Data Primary Care Provider: Viola Jeffries VTE Deep Vein Thrombosis/Pulmonary Embolism Present on Admission: No
== END 2022-05-01 18:00 | disposition home or self-care (01) | DRG 455 ==
PROVIDERS: Admitting Provider Orthopaedic Surgery Orthopaedic Surgery of the Spine; PCP Physician Assistant; Referring Provider Orthopaedic Surgery Orthopaedic Surgery of the Spine; Visit Provider Orthopaedic Surgery Orthopaedic Surgery of the Spine
PROC: 0SG10AJ Fusion of 2 or more Lumbar Vertebral Joints with Interbody Fusion Device, Posterior Approach, Anterior Column, Open Approach (ICD-10-PCS; principal; 2022-04-30 07:45)
DX: M48.062 Spinal stenosis, lumbar region with neurogenic claudication (principal); M43.16 Spondylolisthesis, lumbar region; M43.17 Spondylolisthesis, lumbosacral region; M48.07 Spinal stenosis, lumbosacral region; E78.5 Hyperlipidemia, unspecified; I10 Essential (primary) hypertension; N40.0 Benign prostatic hyperplasia without lower urinary tract symptoms; Z87.891 Personal history of nicotine dependence; Z20.822 Contact with and (suspected) exposure to COVID-19
CPT/HCPCS: 36415; 72100; 76000; 85014; 85018; 87635; 94762; 97116; 97162; 97165; 97535; C9803; C1831; C9290; J0690; J1100; J1170; J2250; J2405; J2704; J3010